=== PATIENT | male | born 1950 | race Caucasian/White ===

== ENCOUNTER → 2017-07-16 | Outpatient (CLI) | payer MEDICARE ==
--- NOTE | 2017-07-17 15:31 | US ---
EXAMINATION TYPE: US venous doppler duplex LE DATE OF EXAM: 07/16/2017 12:16 PM COMPARISON: NONE CLINICAL HISTORY: DVT I82.5Z9. Pt states history of DVT bilateral legs 2 years ago/ pt currently on b lood thinners. SIDE PERFORMED: Bilateral TECHNIQUE: The lower extremity deep venous system is examined utilizing real time linear array sonog renetta with graded compression, doppler sonography and color-flow sonography. VESSELS IMAGED: External Iliac Vein (EIV) Common Femoral Vein Deep Femoral Vein Greater Saphenous Vein * Femoral Vein Popliteal Vein Small Saphenous Vein * Proximal Calf Veins (* superficial vessels) Grayscale, color doppler, spectral doppler imaging performed of the deep veins of the lower extremiti es. There is normal flow, compressibility, vascular waveforms. Right Leg: Negative for acute DVT, chronic non-occluding thrombus from distal fem vein to pop veins. Left Leg: Negative for acute DVT, chronic non-occluding thrombus from mid femoral veins to pop veins . IMPRESSION: 1. No evidence for acute DVT. 2. 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
== END | disposition home or self-care (01) ==
LOC: RADUSWWP 11:46
PROVIDERS: ATTEND Internal Medicine Hematology & Oncology
DX: I82.413 Acute embolism and thrombosis of femoral vein, bilateral (principal); I82.433 Acute embolism and thrombosis of popliteal vein, bilateral; Z91.048 Other nonmedicinal substance allergy status
CPT/HCPCS: 93970